=== PATIENT | female | born 1960 | race Two or more races ===

== ENCOUNTER → 2017-10-31 | Outpatient (CLI) | payer BC ==
--- NOTE | 2017-10-31 10:59 | Diagnostic Imaging Report ---
PROCEDURE: US THYROID COMPARISON: None. INDICATIONS:Throtoxicosis with toxic single thyroid nodule TECHNIQUE: Transverse and longitudinal lopez-scale sonographic images of the thyroid were obtained and supplemented with color doppler. FINDINGS: Right thyroid lobe: There is a dominant 5.2 x 3.2 x 4.7 cm mixed solid-cystic right thyroid lobe nodule. There is associated vascularity. There is heterogeneous echotexture. The nodule is well-circumscribed. Echogenic foci may represent microcalcifications. Left thyroid lobe: Unremarkable appearance. No evidence of nodule. Isthmus: Unremarkable appearance. No evidence of nodule. CONCLUSION: Dominant 5.2 cm mixed solid-cystic nodule in the right thyroid lobe. Thyroid FNA is recommended for further evaluation. Dictated by: JULIANO ESTEVEZ M.D. on 10/31/2017 at 11:04 Electronically approved by: JULIANO ESTEVEZ M.D. on 10/31/2017 at 11:04
== END ==
LOC: US 08:34
PROVIDERS: ATTEND Internal Medicine Endocrinology, Diabetes & Metabolism
DX: E05.10 Thyrotoxicosis with toxic single thyroid nodule without thyrotoxic crisis or storm (principal); D50.9 Iron deficiency anemia, unspecified; E55.9 Vitamin D deficiency, unspecified
CPT/HCPCS: 76536

== ENCOUNTER → 2017-11-01 | Outpatient (CLI) | payer BC ==
--- NOTE | 2017-11-01 20:13 | Diagnostic Imaging Report ---
Thyroid Scan with Single Uptake Reason for exam: Hyperthyroidism Radiopharmaceutical: I-123 Enrique 0.27 mCi Report: After oral administration of I-123 Enrique ,the 4-hour uptake of iodine is 19% (normal 10-35%). Images of the thyroid were obtained in the anterior and anterior oblique projections. A large focal area of increased tracer activity is present in the lower two-thirds of the right thyroid lobe. The remainder of the thyroid shows homogeneous distribution of tracer activity that is decreased relative to the large focal nodular area in the right lobe. The thyroid is in a normal anatomic location. A pyramidal lobe is not seen. There is no aberrant functioning thyroid tissue seen in the area scanned. Impression: A large autonomously functioning thyroid nodule occupies most of the right thyroid lobe. The remainder of the thyroid is nearly completely suppressed. The same findings were present on the prior study of 06/11/2015. In the setting of thyrotoxicosis, the patient would be a candidate for radioiodine therapy for ablation of the hyperfunctioning nodule. Signed by: Dr. Amparo Haney M.D. on 11/01/2017 8:10 PM
== END ==
LOC: NM 09:27
PROVIDERS: ATTEND Internal Medicine Endocrinology, Diabetes & Metabolism
DX: E05.10 Thyrotoxicosis with toxic single thyroid nodule without thyrotoxic crisis or storm (principal); D50.9 Iron deficiency anemia, unspecified; E55.9 Vitamin D deficiency, unspecified
CPT/HCPCS: 78014; A9516